=== PATIENT | female | born 1940 | race Two or more races ===

== ENCOUNTER 2016-12-07 08:34 | Emergency (ER) | payer OTHER ==
[~2016-12-07] VITALS: Ht 152.4 cm; Wt 48.1 kg
[~2016-12-07 08:34] MED LIST: ALENDRONATE; ANAS1TAB6; HYDR-2549; HYDR12.56
[2016-12-07 09:14] VITALS: BP 160/83
[2016-12-07] MEDS ORDERED: traMADol HCL 50 MG TAB PO ONE (09:30)
== END 2016-12-07 10:32 | disposition home or self-care (01) ==
LOC: ER 08:35
DX: S46.912A Strain of unspecified muscle, fascia and tendon at shoulder and upper arm level, left arm, initial encounter (principal); M19.90 Unspecified osteoarthritis, unspecified site; I10 Essential (primary) hypertension; M81.0 Age-related osteoporosis without current pathological fracture; X58.XXXA Exposure to other specified factors, initial encounter; Y93.89 Activity, other specified; Y99.8 Other external cause status; Y92.89 Other specified places as the place of occurrence of the external cause
CPT/HCPCS: 73030

== ENCOUNTER 2018-06-14 09:00 | Emergency (ER) | payer OTHER ==
[~2018-06-14] VITALS: Ht 152.4 cm; Wt 48.5 kg
[~2018-06-14 09:00] MED LIST changes: -ANAS1TAB6; +ANAS1TAB7
[2018-06-14 11:11] VITALS: BP 118/85
[2018-06-14] MEDS ORDERED: methylPREDNISolone SOD SUCC 125 MG/2 ML VL IM ONE (12:15)
== END 2018-06-14 12:38 | disposition home or self-care (01) ==
LOC: ER 09:03
DX: T78.40XA Allergy, unspecified, initial encounter (principal); I10 Essential (primary) hypertension

== ENCOUNTER 2018-06-20 08:12 | Emergency (ER) | payer OTHER ==
[~2018-06-20] VITALS: Ht 152.4 cm; Wt 48.5 kg
[2018-06-20] MEDS ORDERED: SODIUM CHLORIDE 0.9% 1,000 ML IV ONE (11:11)
[2018-06-20] MEDS ORDERED: EZ PAQUE SUSP 12OZ BTL ONE (11:37)
[2018-06-20 12:05] LABS: Basophils # (auto) 0 uL; Basophils % (auto) 0.4 % (0.0-2.0); Eosinophils # (auto) 0 uL; Eosinophils % (auto) 0.1 % (0.0-7.0); Hematocrit 40.7 % (36.0-46.0); Lymphocytes # (auto) 1.9 uL; Mean Corpuscular Hemoglobin 32.1 pg (28.0-32.0); Mean Corpuscular Hgb Conc. 34.4 g/dL (32.0-36.0); Mean Corpuscular Volume 93.3 fL (80.0-100.0); Monocytes # (auto) 0.9 uL; Monocytes % (auto) 9.6 % (0.0-12.0); Neutrophils # (auto) 6.7 uL; Neutrophils % (auto) 69.9 % (37.0-80.0); Nucleated Red Blood Cells % 0.1 %; Platelet Count (auto) 280 10^3/uL (140-450); Red Blood Cells 4.36 10^6/uL (4.0-5.20); Red Cell Distribution Width 13.4 % (11.8-14.3); White Blood Cell 9.6 10^3/uL (4.4-10.8)
[2018-06-20 12:24] LABS: Albumin 3.7 g/dL (3.4-5.0); Anion Gap 10 (5-15); Blood Urea Nitrogen 28 mg/dL (7-18); Calcium 9.2 mg/dL (8.5-10.1); Carbon Dioxide 26 mmol/L (21-32); Chloride 104 mmol/L (98-107); Glucose 86 mg/dL (74-106); Magnesium 2.3 mg/dL (1.6-2.6); Sodium 140 mmol/L (136-145)
[2018-06-20 12:30] LABS: Alanine Aminotransferase 17 U/L (13-56); Alkaline Phosphatase 94 U/L (45-117); Aspartate Aminotransferase 20 U/L (15-37); BUN/Creatinine Ratio 29.8; Bilirubin, Total 0.8 mg/dL (0.2-1.0); GFR African American 74 mL/min; GFR Non-African American 61 mL/min; Total Protein 7.2 g/dL (6.4-8.2)
[2018-06-20] MEDS ORDERED: POTASSIUM EFFERVESENT TAB 25 MEQ PO ONE (13:45)
[2018-06-20] MEDS ORDERED: ONDANSETRON HCL 4 MG/2 ML VIAL IV ONE (15:15)
[2018-06-20 16:16] LABS: Urine Bacteria FEW /hpf (None Seen); Urine Blood Negative /uL (Negative); Urine Specific Gravity 1.013 (1.001-1.035); Urine WBC 3 /hpf (0 - 5)
[2018-06-20 16:45] VITALS: BP 114/73
== END 2018-06-20 17:50 | disposition home or self-care (01) ==
LOC: EDBD 08:12 → ER 08:12
DX: R13.12 Dysphagia, oropharyngeal phase (principal); E05.90 Thyrotoxicosis, unspecified without thyrotoxic crisis or storm; E87.6 Hypokalemia; N39.0 Urinary tract infection, site not specified; I70.0 Atherosclerosis of aorta; M19.90 Unspecified osteoarthritis, unspecified site; I48.91 Unspecified atrial fibrillation; I10 Essential (primary) hypertension; K21.9 Gastro-esophageal reflux disease without esophagitis; Z85.3 Personal history of malignant neoplasm of breast; Z79.899 Other long term (current) drug therapy
CPT/HCPCS: 36415; 70360; 71046; 74220; 80053; 81001; 83735; 84443; 84484; 85025; 93005; 94761; 96374; 99284; J2405; J7030

== ENCOUNTER 2018-10-14 09:05 | Emergency (ER) | payer OTHER ==
[~2018-10-14] VITALS: Ht 154.9 cm; Wt 48.1 kg
[2018-10-14] MEDS ORDERED: SODIUM CHLORIDE 0.9% 500 ML IV ONE (11:00)
[2018-10-14 11:06] LABS: Basophils # (auto) 0.1 uL; Basophils % (auto) 0.9 % (0.0-2.0); Eosinophils # (auto) 0.1 uL; Eosinophils % (auto) 2.1 % (0.0-7.0); Hematocrit 39.5 % (36.0-46.0); Hemoglobin 13.4 g/dL (12.2-16.2); Lymphocytes # (auto) 1.3 uL; Lymphocytes % (auto) 20.2 % (10.0-50.0); Mean Corpuscular Hemoglobin 31.8 pg (28.0-32.0); Mean Corpuscular Hgb Conc. 33.8 g/dL (32.0-36.0); Mean Corpuscular Volume 94.2 fL (80.0-100.0); Monocytes # (auto) 0.4 uL; Monocytes % (auto) 5.3 % (0.0-12.0); Neutrophils # (auto) 4.7 uL; Neutrophils % (auto) 71.5 % (37.0-80.0); Platelet Count (auto) 287 10^3/uL (140-450); Red Blood Cells 4.19 10^6/uL (4.0-5.20); Red Cell Distribution Width 13.8 % (11.8-14.3); White Blood Cell 6.6 10^3/uL (4.4-10.8)
[2018-10-14 11:20] LABS: BUN/Creatinine Ratio 16.5; Calcium 9.1 mg/dL (8.5-10.1); Potassium 3.1 mmol/L (3.5-5.1)
[2018-10-14 11:22] LABS: Bilirubin, Total 0.5 mg/dL (0.2-1.0); Total Protein 7.7 g/dL (6.4-8.2)
[2018-10-14] MEDS ORDERED: IOHEXOL 300 MG/ML 100ML BOTTLE IJ ONE (11:28)
[2018-10-14 13:01] VITALS: BP 135/70
== END 2018-10-14 13:02 | disposition home or self-care (01) ==
LOC: ER 09:11
DX: K59.00 Constipation, unspecified (principal); N39.0 Urinary tract infection, site not specified; N28.1 Cyst of kidney, acquired; M19.90 Unspecified osteoarthritis, unspecified site; K21.9 Gastro-esophageal reflux disease without esophagitis; E11.9 Type 2 diabetes mellitus without complications; Z79.899 Other long term (current) drug therapy
CPT/HCPCS: 36415; 74176; 74177; 80053; 81002; 85025; 99284; J7040; Q9967

== ENCOUNTER 2019-07-08 10:52 | Emergency (ER) | payer OTHER ==
[~2019-07-08] VITALS: Ht 152.4 cm; Wt 48.5 kg
[2019-07-08 11:45] LABS: Basophils # (auto) 0.1 uL; Basophils % (auto) 0.9 % (0.0-2.0); Eosinophils # (auto) 0 uL; Eosinophils % (auto) 0.3 % (0.0-7.0); Hematocrit 42.9 % (36.0-46.0); Hemoglobin 14.5 g/dL (12.2-16.2); Lymphocytes # (auto) 1.8 uL; Lymphocytes % (auto) 22.1 % (10.0-50.0); Mean Corpuscular Hemoglobin 31.1 pg (28.0-32.0); Mean Corpuscular Hgb Conc. 33.7 g/dL (32.0-36.0); Mean Corpuscular Volume 92.3 fL (80.0-100.0); Monocytes # (auto) 0.5 uL; Monocytes % (auto) 6.4 % (0.0-12.0); Neutrophils # (auto) 5.7 uL; Neutrophils % (auto) 70.3 % (37.0-80.0); Nucleated Red Blood Cells % 0.1 %; Platelet Count (auto) 283 10^3/uL (140-450); Red Blood Cells 4.65 10^6/uL (4.0-5.20)
[2019-07-08 11:58] LABS: Albumin 3.8 g/dL (3.4-5.0); Calcium 9.6 mg/dL (8.5-10.1); Potassium 3.5 mmol/L (3.5-5.1)
[2019-07-08 12:02] LABS: BUN/Creatinine Ratio 12.9; Bilirubin, Total 0.7 mg/dL (0.2-1.0); Total Protein 8.1 g/dL (6.4-8.2)
[2019-07-08 16:32] VITALS: BP 142/96
[2019-07-08 16:39] LABS: Urine Bacteria NONE SEEN /hpf (None Seen); Urine Blood Negative /uL (Negative); Urine Hyaline Cast FEW /lpf (0 - 2); Urine Mucus FEW (None Seen); Urine Specific Gravity 1.028 (1.001-1.035); Urine WBC 8 /hpf (0 - 5)
== END 2019-07-08 17:05 | disposition home or self-care (01) ==
LOC: ER 10:52
DX: N39.0 Urinary tract infection, site not specified (principal); M48.54XA Collapsed vertebra, not elsewhere classified, thoracic region, initial encounter for fracture; I12.9 Hypertensive chronic kidney disease with stage 1 through stage 4 chronic kidney disease, or unspecified chronic kidney disease; N18.3 Chronic kidney disease, stage 3 (moderate); K21.9 Gastro-esophageal reflux disease without esophagitis; Z79.899 Other long term (current) drug therapy
CPT/HCPCS: 36415; 74176; 80053; 81001; 83690; 85025; 93005